=== PATIENT | male | born 1995 | race African-American/Black ===

== ENCOUNTER 2019-05-28 21:11 | Emergency (ER) | payer OTHER ==
[2019-05-28 21:18] VITALS: BP 157/84
--- NOTE | 2019-05-28 21:58 | ED ---
Lower Extremity - HPI Summary HPI Summary: 23-year-old male presents with right hip pain for the past couple days. He states that only hurts in certain position. Hurts worse when he goes up stairs. He denies any injury. No Back pain. No urinary symptoms. No fevers. No injury to the area. Does not currently having pain. no numbness or tingling. no weakness. has not taken anything for symptoms. no rash. - History of Current Complaint Chief Complaint: EDHipPelvisInjury Stated Complaint: HIP PAIN PER PT Time Seen by Provider: 05/28/19 21:25 Pain Intensity: 0 - Allergies/Home Medications Allergies/Adverse Reactions: Allergies Allergy/AdvReac Type Severity Reaction Status Date / Time shellfish derived Allergy Anaphylatic Verified 05/28/19 21:15 Shock PMH/Surg Hx/FS Hx/Imm Hx Endocrine/Hematology History: Denies: Hx Diabetes Cardiovascular History: Denies: Hx Hypertension, Hx Pacemaker/ICD History: Denies: Hx Renal Disease Sensory History: Denies: Hx Hearing Aid Psychiatric History: Denies: Hx Panic Disorder Infectious Disease History: No Infectious Disease History: Denies: Traveled Outside the [place] in Last 30 Days - Family History Known Family History: Positive: Non-Contributory - Social History Alcohol Use: Rare Substance Use Type: Reports: None Smoking Status (MU): Never Smoked Tobacco Review of Systems Negative: Fever Negative: Chest Pain Negative: Shortness Of Breath Positive: Myalgia - right hip pain All Other Systems Reviewed And Are Negative: Yes Physical Exam Triage Information Reviewed: Yes Vital Signs On Initial Exam: Initial Vitals Temp Pulse Resp BP Pulse Ox 97.8 F 76 18 157/84 98 05/28/19 21:15 05/28/19 21:15 05/28/19 21:15 05/28/19 21:15 05/28/19 21:15 Vital Signs Reviewed: Yes Appearance: Positive: Well-Appearing Skin: Positive: Warm, Dry Head/Face: Positive: Normal Head/Face Inspection Eyes: Positive: Normal, Conjunctiva Clear ENT: Positive: Pharynx normal Respiratory/Lung Sounds: Positive: Clear to Auscultation, Breath Sounds Present Cardiovascular: Positive: Normal, RRR Musculoskeletal: Positive: Strength/ROM Intact - right hip, Other - nontender right hip, pos KOREY test, good pulses, sensation grossly intact, nontender back Neurological: Positive: Normal Psychiatric: Positive: Normal Procedures - Sedation Patient Received Moderate/Deep Sedation with Procedure: No Diagnostics - Vital Signs Vital Signs Temp Pulse Resp BP Pulse Ox 05/28/19 21:15 97.8 F 76 18 157/84 98 - Laboratory Lab Statement: Any lab studies that have been ordered have been reviewed, and results considered in the medical decision making process. Lower Extremity Course/Dx - Course Course Of Treatment: 23-year-old male presents with right hip pain for the past couple days. He states that only hurts in certain position. Hurts worse when he goes up stairs. He denies any injury. No Back pain. No urinary symptoms. No fevers. No injury to the area. Does not currently having pain. no numbness or tingling. no weakness. has not taken anything for symptoms. no rash. On exam nontender over right hip. Neurovascular intact. Positive KOREY test. Discussed likely muscular. Told to continue treat conservatively. Patient understands and agrees with the plan. - Diagnoses Differential Diagnosis/HQI/PQRI: Positive: Fracture (Closed), Sprain, Strain Provider Diagnoses: Right hip pain Discharge ED - Sign-Out/Discharge Documenting (check all that apply): Patient Departure - Discharge Plan Condition: Good Disposition: HOME Patient Education Materials: Hip Sprain (ED) Referrals: [facility] [Outside] Additional Instructions: Take Tylenol or ibuprofen every 6 hours as needed for pain Apply ice, rest, elevate establish care with primary Return to ED if develop any new or worsening symptoms - Billing Disposition and Condition Condition: GOOD Disposition: Home
== END 2019-05-28 22:02 | disposition home or self-care (01) ==
LOC: ED 21:11
DX: M25.551 Pain in right hip (principal); Z91.013 Allergy to seafood
CPT/HCPCS: 99281